=== PATIENT | male | born 1945 | race Caucasian/White ===

== ENCOUNTER 2019-04-16 11:37 | Day surgery (SDC) | payer MEDICARE, OTHER ==
[~2019-04-16] VITALS: Ht 172.7 cm; Wt 91.7 kg
[2019-04-16 12:31] VITALS: Ht 172.7 cm; Wt 91.7 kg
[2019-04-16] MEDS ORDERED: OMEP20CA16 PO (12:37)
[2019-04-16] MEDS ORDERED: ALPR0.25 PO (12:37)
[2019-04-16] MEDS ORDERED: SERT100T PO (12:37)
[2019-04-16] MEDS ORDERED: IRBE150T21 PO (12:37)
[2019-04-16 13:10] VITALS: BP 157/75; PULSE 88; RESP 18
--- NOTE | 2019-04-16 13:37 | PREAC ---
Date/Time of Note Date/Time of Note DATE: 04/16/19 TIME: 13:36 Anesthesia Eval and Record Evaluation Time Pre-Procedure Interview DATE: 04/16/19 TIME: 13:36 Age 74 Sex male NPO: 8 hrs Preoperative diagnosis reflux esophagitis, change in bowel habits Planned procedure EGD, colonoscopy Past Medical History Past Medical History: Includes Cardio: HTN GI: GERD, Obesity Psych: Depression Surgery & Anesthesia Issues No known issue Meds Anticoagulation: No Beta Brent within 24 hr: No Reason Beta Brent not given: Pt. not on B-Brent Reported Medications Alprazolam* (Xanax*) 0.25 Mg Tablet, 0.25 MG PO TID, TAB 04/16/19 Sertraline Hcl* (Zoloft*) 100 Mg Tablet, 100 MG PO DAILY, #30 TAB 04/16/19 Omeprazole* (Omeprazole*) 20 Mg Capsule.dr, 20 MG PO DAILY, #30 CAP 04/16/19 Irbesartan* (Irbesartan*) 150 Mg Tablet, 150 MG PO DAILY, TAB 04/16/19 Meds reviewed: Yes Allergies Coded Allergies: No Known Allergy (Verified , 04/16/19) Allergies Reviewed: Yes Labs/Studies Labs Reviewed: Reviewed by anesthesiologist test: N/A Pre-procedure Exam Last vitals Vital Signs Date Temp Pulse Resp B/P (MAP) Pulse Ox O2 O2 Flow FiO2 Time Delivery Rate 04/16/19 98.9 88 18 157/75 95 Room Air 13:10 (102) Airway: Adequate mouth opening, Adequate thyromental dist Mallampati: Mallampati II Teeth: Normal Lung: Normal Heart: Normal ASA Physical Status ASA physical status: 2 Emergency: None Planned Anesthetic General/MAC: Mask Planned Pain Management Parenteral pain med Pre-operative Attestations Prior to commencing anesthesia and surgery, the patient was re-evaluated, there was verification of: *The patient's identity *The results of appropriate recent lab work and preoperative vital signs *The above evaluation not changing prior to induction *Anesthetic plan, risk benefits, alternative and complications discussed with patient/family; questions answered; patient/family understands, accepts and wishes to proceed. DEONNA NESBITT MD Apr 16, 2019 13:37
[2019-04-16] MEDS ORDERED: LIDOCAINE 2% (SDV) 5 ML INJ ONE (13:41)
[2019-04-16] MEDS ORDERED: PROPOFOL 60 ML ONE (13:41)
[2019-04-16] MEDS ORDERED: ONDANSETRON 4 MG INJ IV PRN (14:00)
[2019-04-16 14:24] VITALS: BP 121/75; PULSE 92; RESP 20
[2019-04-16] MEDS ORDERED: EPHEDrine 25 MG/5 ML SYG ONE (14:26)
[2019-04-16] MEDS ORDERED: PROPOFOL 20 ML ONE (14:26)
[2019-04-16 14:27] VITALS: BP 130/78; PULSE 96; RESP 20
--- NOTE | 2019-04-16 14:31 | PAC ---
Date/Time of Note Date/Time of Note DATE: 04/16/19 TIME: 14:30 Post-Anesthesia Notes Post-Anesthesia Note Last documented vital signs Vital Signs Date Temp Pulse Resp B/P (MAP) Pulse Ox O2 O2 Flow FiO2 Time Delivery Rate 04/16/19 98.9 88 18 157/75 95 Room Air 13:10 (102) Activity: WNL Respiratory function: WNL Cardiovascular function: WNL Mental status: Baseline Pain reasonably controlled: Yes Hydration appropriate: Yes Nausea/Vomiting absent: Yes Comments BP: 130/70 HR: 99 RR: 16 T: 98 SaO2: 95% DEONNA NESBITT MD Apr 16, 2019 14:31
[2019-04-16 14:34] VITALS: BP 143/81; PULSE 90; RESP 18
[2019-04-16 14:40] VITALS: BP 143/84; PULSE 88; RESP 18
== END 2019-04-16 15:25 | disposition home or self-care (01) ==
LOC: GIL 11:37
PROVIDERS: ATTEND Internal Medicine Gastroenterology
DX: R19.4 Change in bowel habit (principal); K64.8 Other hemorrhoids; D12.6 Benign neoplasm of colon, unspecified; K29.30 Chronic superficial gastritis without bleeding; I10 Essential (primary) hypertension
CPT/HCPCS: 88305; 88312